=== PATIENT | female | born 1970 | race Caucasian/White ===

== ENCOUNTER 2019-02-12 16:29 | Outpatient (REF) | payer MEDICARE, SELFPAY ==
--- NOTE | 2019-02-12 16:15 | PAPFT_PTH ---
PATIENT: Marii Neri LOC: [facility] U#:[id number] AGE/SX: 48/F ROOM: RE02/12/[address]: WILLIAM Hinson : 1970 BED: DIS: 02/12/2019 SPEC #: [id number] RECD: 02/13/19 13:01 STATUS: MICHAEL TROY #: [id number] JENNIFER: 02/12/19 16:[address]: Tashia Simpson DEPT: [facility] Cytology RECD BY: Mabel Grant Tissues: 1 - CX/ENDOCX FOR PAP SMEARS Procedures: PAP THIN PREP/UVM Screening HPV DNA PROBE Comments: [id number]
== END 2019-02-12 16:49 ==
LOC: LBN 16:29
PROVIDERS: PCP Nurse Practitioner Family; Visit Provider Nurse Practitioner Family
DX: Z12.4 Encounter for screening for malignant neoplasm of cervix (principal); Z11.51 Encounter for screening for human papillomavirus (HPV)
CPT/HCPCS: 88142; 87624

== ENCOUNTER 2019-02-14 01:32 | Outpatient (CLI) | payer MEDICARE, SELFPAY ==
--- NOTE | 2019-02-14 13:30 | DI.MAMMO_ITS ---
SYMPTOMS/DIAGNOSIS: SCREENING, Z12.31 MAMMOGRAMS: Mammograms were interpreted according to the usual protocol including computer analysis with CAD system, tomosynthesis and C view imaging. The breasts are of moderate density with fairly symmetrical distribution of fibroglandular tissue. No dominant mass or clumped microcalcification is identified in either breast. Current examination is compared with the previous examination of May 2013 and there has been no gross interval change in appearance since that time. CONCLUSION: No specific evidence of malignancy at this time. Routine screening examinations are suggested at yearly intervals in this age group according to the ACS/ACR guidelines. Category 1, breast density category B. MQSA ASSESSMENT OF FINDINGS: Negative. Category 1. Patient will receive a letter notifying them of these results. BI-RADS category B. There are scattered areas of fibroglandular density.
== END 2019-02-14 01:52 ==
PROVIDERS: PCP Nurse Practitioner Family; Visit Provider Nurse Practitioner Family
DX: Z12.31 Encounter for screening mammogram for malignant neoplasm of breast (principal)
CPT/HCPCS: 77063; 77067

== ENCOUNTER 2019-02-19 07:05 | Outpatient (CLI) | payer MEDICARE, SELFPAY ==
[2019-02-19 08:27] LABS: Anion Gap 7.5 mmol/L (3-11); BUN 19 mg/dL (7-18); CO2 28.5 mmol/L (21.0-32.0); CREATININE 0.68 mg/dL (0.55-1.02); Calcium 8.9 mg/dL (8.5-10.1); Chloride 105 mmol/L (98-107); Cholesterol 161 mg/dL (50-200); Glucose 93 mg/dL (70-100); HDL Cholesterol 52 mg/dL (40-60); LDL CHOLESTEROL 87 mg/dL (<100); Potassium 3.6 mmol/L (3.5-5.1); Sodium 141 mmol/L (136-145); Triglyceride 98 mg/dL (30-150)
[2019-02-19 08:42] LABS: Hemoglobin A1C 5.3 % (4.5-6.2)
== END 2019-02-19 07:25 ==
PROVIDERS: PCP Nurse Practitioner Family; Visit Provider Nurse Practitioner Family
DX: Z13.1 Encounter for screening for diabetes mellitus (principal); Z13.6 Encounter for screening for cardiovascular disorders; R69 Illness, unspecified
CPT/HCPCS: 36415; 80048; 80061; 83721; 83036

== ENCOUNTER → 2019-03-12 07:57 | Outpatient (BNVA) | payer MEDICARE, SELFPAY | PROVIDERS: PCP Nurse Practitioner Family; Referring Provider Nurse Practitioner Family; Visit Provider Student in an Organized Health Care Education/Training Program | DX: M65.4 Radial styloid tenosynovitis [de Quervain] (principal); M19.041 Primary osteoarthritis, right hand; M25.531 Pain in right wrist; M25.541 Pain in joints of right hand | CPT/HCPCS: 20550; 99212; J1030 ==

== ENCOUNTER 2019-04-16 11:20 | Outpatient (CLI) | payer MEDICARE, SELFPAY ==
--- NOTE | 2019-04-16 08:18 | DI.RAD_ITS ---
SYMPTOM/DIAGNOSIS: RT THUMB PAIN RIGHT THUMB: Mild degenerative changes involving the interphalangeal and metacarpal phalangeal joints are demonstrated. There is also evidence of mild DJD at the first metacarpal multangular joint.
== END 2019-04-16 11:40 ==
PROVIDERS: PCP Nurse Practitioner Family; Referring Provider Nurse Practitioner Family; Visit Provider Student in an Organized Health Care Education/Training Program
DX: M65.4 Radial styloid tenosynovitis [de Quervain] (principal); M79.644 Pain in right finger(s); M18.11 Unilateral primary osteoarthritis of first carpometacarpal joint, right hand; Z98.890 Other specified postprocedural states
CPT/HCPCS: 99213; 73140

== ENCOUNTER 2019-06-05 08:57 | Outpatient (CLI) | payer MEDICARE, SELFPAY ==
--- NOTE | 2019-06-05 08:07 | HPE_ITS ---
Date of service: 06/05/19 Assessment and Plan (1) De Quervain's tenosynovitis, right: Current visit: No Status: Chronic (2) Osteoarthritis of carpometacarpal (CMC) joint of right thumb: Current visit: No Status: Chronic Trapezial arthroplasty and De Quervain's release of the right wrist. Details of surgery were discussed with patient as well as risks and pertinent anatomy. All questions were answered. Qualifiers: Osteoarthritis type: primary Qualified Code(s): M18.11 - Unilateral primary osteoarthritis of first carpometacarpal joint, right hand History of Present Illness Chief Complaint: Right thumb and wrist pain Narrative: Marii is a 49 year old female who comes in today for a preop history and physical for a trapezial arthroplasty and De Quervain's release on her right wrist. She has been dealing with right hand pain for quite some time, and even when wearing a brace, she has pain with rigorous or repetitive motions of the right hand. She has had an injection in the right wrist for De Quervain's tendinitis, and this only helped her symptoms slightly. She has proven CMC arthritis in the right thumb on x- ray, and physical exam in the office seems to point towards both CMC arthritis and De Quervain's tendinitis. After discussion in the office at her previous visit, she elects to move forward with a trapezial arthroplasty at the same time as a De Quervain's release on the right wrist in order to potentially relieve all of her symptoms in her right hand. Pertinent Surgical Information Patient denies history of hypertension, CVA, MT, angina, asthma, COPD, renal or liver disorders, hepatitis, bleeding disorders, diabetes, immune or thyroid disorders. No complications from anesthesia. Review of Systems Constitutional Denies fever(s) ENT Denies dizziness and Denies sore throat Cardiovascular Denies chest pain, Denies palpitations and Denies dyspnea Respiratory Denies cough and Denies dyspnea Gastrointestinal Denies abdominal pain, Denies melena, Denies hematochezia, Denies diarrhea, Denies nausea and Denies vomiting Genitourinary Denies hematuria and Denies dysuria Neurologic Denies dizziness Endocrine Denies palpitations [facility] Medical History Chronic midline low back pain with right-sided sciatica (Inactive 03/21/18) Electronic cigarette use (Inactive 02/11/18) Primary fibromyalgia syndrome (Chronic 10/06/13) Surgical History (Updated 06/05/19 @ 08:38 by SWATHI Ferrera) H/O section (Inactive) History of arthroscopy of left shoulder (Acute 08/29/16) History of bilateral tubal ligation (Inactive ~2000) History of cholecystectomy (Chronic 12/19/17) Social History (Updated 02/17/19 @ 10:21 by Alek Alvares) Smoking/Tobacco Use Status: Current every day Tobacco: How many years used: 35 Quit status: not considering quitting Alcohol Intake: current Alcohol Intake frequency: a few times a month Alcohol type: hard liquor Drug use: Never Substance use type: does not use Caregiver/Support person: No Household members: spouse Housing: house Communication Needs: None Do you need help understanding health information?: Rarely Pets and animals: Yes Pets and animals: dog(s) Sexually active: Yes Do you think of yourself as: straight/heterosexual Current gender identity: decline to answer What is your relationship status?: How often do you talk on the phone with friends or family?: never How often do you get together with friends or relatives?: decline to answer How often do you attend mormon or buddhist services?: decline to answer Do you belong to any clubs or organized social groups?: no Panel score (0-1 are the most socially isolated patients): 1 What type of physical activity do you participate in: walking Duration: 15-30 minutes/day Frequency: 1-2 times per week Mayda/Cheondoism: none Special mayda needs: No Seatbelt use: sometimes Helmet use: No Drive intox or ride w/intox subway train driver: No Do you feel safe in your relationship?: Yes History History 3 Para 3 Hx # Term Pregnancies Multiple births Hx # Pregnancies Ectopic pregnancies AB induced Hx Number of Living Children 2 AB spontaneous Meds Home Medications Medication Instructions Recorded Confirmed Type Sleep Aid (doxylamine) 25 mg PO DAILY tab-cap 09/11/17 06/05/19 History gabapentin 800 mg tablet 800 mg PO TID #270 tab-cap 09/18/18 06/05/19 Rx docusate sodium 100 mg capsule 100 mg PO DAILY PRN tab-cap 02/12/19 06/05/19 History ibuprofen 600 mg tablet 600 mg PO Q6H PRN #180 tab 05/01/19 06/05/19 Rx acetaminophen 650 mg 1,300 mg PO QID tab 06/05/19 06/05/19 History tablet,extended release Allergies Allergy/AdvReac Type Severity Reaction Status Date / Time No Known Allergies Allergy Unverified 06/05/19 08:02 Exam [facility] Head: normocephalic and atraumatic General nose exam: no nasal discharge Throat: uvula midline and no uvular edema Other: soft palate rises symmetrically, no erythema Eyes Conjunctivae: conjunctivae normal Sclera: sclerae normal Pupils: PERRL Resp Effort & Inspection: normal respiratory effort Auscultation: clear to auscultation bilaterally and no wheezes Cardio Rate: regular rate Rhythm: regular rhythm Heart Sounds: S1 normal, S2 normal and no murmurs GI Palpation: soft, no hepatosplenomegaly and nontender Auscultation: normal bowel sounds
== END 2019-06-05 09:17 ==
PROVIDERS: PCP Nurse Practitioner Family; Visit Provider Student in an Organized Health Care Education/Training Program
DX: M65.4 Radial styloid tenosynovitis [de Quervain] (principal); M18.11 Unilateral primary osteoarthritis of first carpometacarpal joint, right hand; Z01.818 Encounter for other preprocedural examination
CPT/HCPCS: NC

== ENCOUNTER 2019-06-10 09:27 | Day surgery (SDC) | payer MEDICARE, SELFPAY ==
[2019-06-10] VITALS (7 sets, daily range): BP systolic 130–172; BP diastolic 80–100; PULSE 17–70; RESP 12–16; TEMP 36.1–36.4; O2SAT 94–98
--- NOTE | 2019-06-10 09:43 | DI.RAD_ITS ---
SYMPTOM/DIAGNOSIS: DEQUERVAINS RIGHT WRIST: Fluoroscopy Time: 7 seconds Fluoroscopy was provided in the OR. Hard copy images show resection of the trapezium.
[2019-06-10] MEDS: Lactated Ringers 1,000 ML 80 ML IV (10:11)
[2019-06-10] MEDS: ceFAZolin 2 GM/50 ML BAG IVPB (10:16)
--- NOTE | 2019-06-10 10:16 | PDOC.DSDIS_ITS ---
Discharge Plan Disposition Patient Disposition: HOME Condition: Good Discharge Details Reason For Visit: R Dequervains and 1st CMC Arthritis Attending Provider: Kamron Abraham Primary Care Provider: Tashia Simpson Home Meds and New Rx's Prescriptions: New acetaminophen 500 mg tablet 1,000 mg PO Q8H PRN (Reason: pain) Qty: 60 RF: 3 oxycodone 5 mg tablet 5 mg PO Q6H PRN PRNQty: 16 RF: 0 Continued Sleep Aid (doxylamine) 25 MG tablet 25 mg PO HS RF: 0 gabapentin 800 mg tablet 800 mg PO TID Qty: 270 RF: 4 docusate sodium [Colace] 100 mg capsule 100 mg PO DAILY PRNRF: 0 ibuprofen 600 mg tablet 600 mg PO Q6H PRN Qty: 180 RF: 2 Discontinued acetaminophen [Tylenol Arthritis Pain] 650 mg tablet extended release 1,300 mg PO QID RF: 0 Discharge Instructions Additional Instructions: Activity: You should keep the hand/thumb elevated as much as possible for the first few days. You may use the other fingers as tolerated but avoid trying to do too much too soon. You may perform light activities with the splint in place. Dressing/Cast: Your splint should stay in place at all times. Do NOT get it wet. You may loosen the NESTOR wrap if you feel it is too tight and then rewrap more loosely. Medications: - You should take Tylenol and Ibuprofen for baseline pain control. - You have Oxycodone for breakthrough pain. - You may apply ice over the thumb. Follow-up: 10-14 days Referrals: Kamron Abraham MD [ [facility] STAFF PHYSICIAN] - Equipment/Supplies: Splint Activity:: Elevate Remove Dressings/Wound Care:: Do Not Remove Shower/Bathe:: Cover Diet:: As Tolerated Discharge Orders Discharge Orders: Discharge Order (Routine); Ordered 06/10/19 Ordered By: Kamron Abraham DS: Diagnosis Discharge Diagnosis (1) Osteoarthritis of carpometacarpal (CMC) joint of right thumb: Status: Chronic (2) De Quervain's tenosynovitis, right: Status: Chronic
[2019-06-10] MEDS: oxyCODONE 5 MG TAB PO (12:55)
--- NOTE | 2019-06-11 07:37 | ROE_ITS ---
Date of service: 06/10/19 Time of Service: 12:37 Operative Note DATE OF PROCEDURE: 06/10/19 PRE-OP DIAGNOSIS: Right dequervain's Tenosynovitis and right first CMC arthritis POST-OP DIAGNOSIS: same PROCEDURE: Right first extensor compartment release Right trapezial arthroplasty with suture suspensionplasty SURGEON: Kamron Abraham LAB ASSOCIATE: Hugo White ANESTHESIA: MAC ESTIMATED BLOOD LOSS: 50 PATHOLOGY: none sent TOURNIQUET TIME: 55 COMPLICATIONS: Other (A small arterial branch was injured. This was cauterized. It was not the palmar arch branch of the radial artery or the superficial branch of the radial artery. The hand was well-perfused.) Patient was transported to: same day Patient's condition: stable Indications: Marii is a 49-year-old [id number] female who has had symptoms of de Quervain's tenosynovitis and first CMC arthritis. Nonoperative treatment options had been trialed. Given their failure, I offered operative i ntervention. I reviewed the technical details of a first extensor compartment release along with CMC trapezial resection arthroplasty. I reviewed the risk of the procedure to include bleeding, infection, pain, stiffness, tendon instability, damage to the superficial radial nerve, damage to neighboring arteries, subsidence and incomplete release. Despite these risks, the patient elected to proceed. Findings: There was a tightened first excessive compartment. There is a single sub-compartment encasing the EPB tendon which was released. The trapezium was removed in a standard fashion. However, it was recognized that there is a small vascular structure which was injured. It was not the palmar branch of the radial artery nor the superficial branch of the radial artery. After assessing blood flow of the tourniquet down and this bleeding vessel clamped, there was excellent blood flow throughout the digits. It was then decided to cauterize successfully. There is no further bleeding. Procedure Description: Marii was greeted in the preoperative holding area. Name and surgical site were confirmed. The history and physical was completed. The consent was reviewed the patient and signed. Marii was taken back to the operating room. The patient was placed and monitored anesthesia care. The right was then prepped with ChloraPrep and draped in a standard fashion after a nonsterile tourniquet was placed high up onto the arm. Prophylactic antibiotics in the form of cefazolin were administered. A timeout was performed for safe surgery. The surgical site was drawn on the skin. The planned surgical field was anesthetized with 0.25% bupivacaine with epinephrine. The limb was exsan guinated and the tourniquet was inflated where it stayed for 55 minutes. A 3 cm incision was made longitudinally over the radial styloid and first CMC joint. The skin was incised only. The deep tissue and subcutaneous fat was dissected with a tenotomy scissors trying to protect superficial radial nerve. Any branches that were identified were retracted out of the way. The first compartment extensor tendons were then identified. The distal aspect of the first compartment was noted and were released. This release was performed more on the dorsal side to prevent tendon subluxation. The entirety of the first extensor compartment was then released. The slips of the abductor pollicis longus tendon were inspected. They removed to confirm the appropriate motion of the thumb. The extensor pollicis brevis tendon was then identified. It was housed in a separate sub-compartment. It was fully released. Traction on the tendon was also used to confirm appropriate extension of the thumb confirming the release of the appropriate tendon. The dorsal radial surface of the radius was once again inspected to make sure there is no other sub-compartments or other restrictions to tendon motion. Attention was then turned to the CMC arthroplasty portion of the case. The joint space between the trapezium of the first metacarpal was identified. The capsule was incised and a [employer] was placed within this joint. Fluoroscopy was used to confirm appropriate location. The capsule was then elevated off of the trapezium. This was worked from a distal to proximal direction. Retractors wer e placed. As I was moving from the proximal distal direction there is a noted blush of blood as I was dissecting tissue off of the trapezium. There was noted to be a small tubular structure. This was adjacent to the palmar branch of the radial artery but it did not involve the palmar branch of the radial artery. We continued with removing of the trapezium. This was done by elevating off the c apsular tissues. An osteotome was used to separate the bone into 4 pieces and then removed with a rongeur. Once all the major aspects of the trapezium was removed the wound was irrigated. I then performed a suture suspension plasty by placing a #2-0 FiberWire from the base of the first metacarpal through the insertion of the abductor pollicis longus tendon into the flexor carpi radialis tendon at the level of the second metacarpal. This was taken back and forth twice to create a crossing suture to serve as a sling. This suture was not over tightened to prevent hourglass deformity of the tendons. X-ray confirmed appropriate positioning and it was tied in place. I then released the tourniquet. It was evident that there was a small arterial branch. Once again, it was not the superficial radial artery branch and also was not the palmar branch. This was dissected out more fully. It was unclear exactly what secondary branch it was. Nevertheless, it was clamped and there is no change to blood flow or perfusion of the digits. Therefore, I cauterized the small branch. There is no more active blood flow. There was a small sidewall injury to the palmar branch of the radial artery. It involved the adventitia but do not think actually went completely through the artery as there was no pulsatile flow. However, there was a defect seen there in the adventitia and therefore I placed a single 6-0 nylon suture in the sidewall which stopped all oozing. The wound was thoroughly irrigated. There is no significant blood loss within the wound anymore. All digits were warm and well perfused with capillary refill less than 2 seconds. The wound was then thoroughly irrigated. The deep tissue was closed with a 3-0 Vicryl. The skin was closed with a running subjective 4-0 Monocryl. Skin glue was applied. The hand was dressed with 4 x 4's, web roll, thumb spica splint. At the end of the case, all counts were correct. Patient was transferred back to the PACU in stable condition.
== END 2019-06-10 13:43 | disposition home or self-care (01) ==
PROVIDERS: PCP Nurse Practitioner Family; Visit Provider Student in an Organized Health Care Education/Training Program
PROC: (CPT 25000; principal; 2019-06-10 10:15)
PROC: (CPT 25447; 2019-06-10 10:15)
DX: M18.11 Unilateral primary osteoarthritis of first carpometacarpal joint, right hand (principal); M65.4 Radial styloid tenosynovitis [de Quervain]; I97.52 Accidental puncture and laceration of a circulatory system organ or structure during other procedure
CPT/HCPCS: 25447; 25000; 81025; 73100; J0690; J1100; J1885; J2250; J2405; L3650

== ENCOUNTER → 2019-06-26 11:19 | Outpatient (BNVA) | payer MEDICARE, SELFPAY | PROVIDERS: PCP Nurse Practitioner Family; Referring Provider Nurse Practitioner Family; Visit Provider Student in an Organized Health Care Education/Training Program | DX: Z47.89 Encounter for other orthopedic aftercare (principal); M18.11 Unilateral primary osteoarthritis of first carpometacarpal joint, right hand; M65.4 Radial styloid tenosynovitis [de Quervain] | CPT/HCPCS: L3807 ==

== ENCOUNTER → 2019-08-04 09:24 | Outpatient (BNVA) | payer MEDICARE, SELFPAY | PROVIDERS: PCP Nurse Practitioner Family; Referring Provider Nurse Practitioner Family; Visit Provider Student in an Organized Health Care Education/Training Program | DX: Z47.89 Encounter for other orthopedic aftercare (principal); M18.11 Unilateral primary osteoarthritis of first carpometacarpal joint, right hand; M65.4 Radial styloid tenosynovitis [de Quervain] ==

== ENCOUNTER 2022-06-29 17:03 | Emergency (ER) | payer SELFPAY ==
[2022-06-29 17:08] VITALS: BP 131/78; PULSE 97; RESP 18; TEMP 36.5; O2SAT 97
--- NOTE | 2022-06-29 17:21 | W.ED.GENAD ---
Discharge Plan Disposition Patient Disposition: HOME Condition: Stable Discharge Details Clinical Impression: Acute mastitis of right breast Primary Care Provider: Tashia Simpson ED Provider: Kaitlynn Mike Home Meds and New Rx's Prescriptions: New cephalexin 500 mg tablet 500 mg PO BID 7 Days Qty: 14 0RF Rx Instructions: Take one tablet with food twice daily No Action gabapentin 800 mg tablet 800 mg PO TID Qty: 270 3RF acetaminophen 500 mg tablet 1,000 mg PO Q8H PRN (Reason: pain) Qty: 60 3RF ibuprofen 600 mg tablet 600 mg PO Q6H PRN Qty: 180 2RF Discharge Instructions Instructions: Mastitis (ED), Cellulitis (ED) Additional Instructions: Please have the ultrasound as soon as possible as instructed by the radiology department. Call them to make an appointment. Take the antibiotics as directed with yogurt or a probiotic. Please take Tylenol or Ibuprofen with food every 4-6 hours as needed for pain and swelling. Please follow-up closely with your primary care provider to discuss the results of the ultrasound and for further evaluation. Please discuss the need for possible needle biopsy and or mammogram. The redness and swelling should get better in the next 3 to 5 days with the antibiotics. Please return sooner if any spreading of the redness or no improvement. Referrals: Tashia Simpson, [employer] OPERATOR [Primary Care Provider] - 3 days Medical Decision Making 52-year-old female presents to the ER with chief complaint of right breast redness, swelling and tenderness which she reported noticing a few days ago. No nipple discharge. She does have a large area of erythema, induration warmth and red streaks. CBC, CMP, lactate ordered. Outpatient soft tissue ultrasound of right breast noted. CBC shows white blood cell count of 13.32, absolute neutrophils 1.43, sodium 135 potassium 3.3 glucose 133. Lactate 1.0. Patient was given a gram of Rocephin here in the department. Prescription given for cephalexin however milligrams twice daily. Instructed to have ultrasound of soft tissue of right breast soon as possible and follow-up with primary care to discuss further evaluation. Discussed strict return instructions. Verbalized understanding. This text was generated using [employer] system, please disregard any oddities of phrase or misspellings. Lab Data Lab results reviewed: Yes I reviewed the patient's lab results. Labs: Laboratory Tests Range/Units 06/29/22 06/29/22 06/29/22 17:40 17:40 17:40 WBC (4.4-10.8) 10^3/uL 13.32 H RBC (3.93-5.22) 10^6/uL 4.05 Hgb (11.2-15.7) g/dL 13.0 Hct (36.0-46.0) % 36.2 MCV (80-95) fL 89 MCH (27.0-33.0) pg 32.1 MCHC (32.0-36.0) % 35.9 RDW (11.7-14.6) % 11.9 Plt Count (130-400) 10^3/uL 153 MPV (8.0-11.0) fL 11.1 H Immature Gran % 0.5 Neutrophils % 85.8 Lymphocytes % 7.7 Monocytes % 5.8 Eosinophils % 0.0 Basophils % 0.2 Nucleated RBC % (0.0-0.3) % 0.0 Absolute Neutrophils (1.2-6.7) 10^3/uL 11.43 H Absolute Lymphocytes (1.2-3.4) 10^3/uL 1.03 L Absolute Monocytes (0.1-0.8) 10^3/uL 0.77 Absolute Eosinophils (0.0-0.7) 10^3/uL 0.00 Absolute Basophils (0.0-0.2) 10^3/uL 0.03 VBG Lactate (0.6-1.4) mmol/L 1.0 Sodium (136-145) mmol/L 135 L Potassium (3.5-5.1) mmol/L 3.3 L Chloride (98-107) mmol/L 99 Carbon Dioxide (21.0-32.0) mmol/L 27.9 Anion Gap (3-11) mmol/L 8.1 BUN (7-18) mg/dL 20 H Creatinine (0.55-1.02) mg/dL 0.8 Est GFR (CKD-EPI 2020) (mL/min/1.73m2) 87.50 Glucose (74-106) mg/dL 133 H Calcium (8.5-10.1) mg/dL 9.6 Total Bilirubin (0.2-1.0) mg/dL 0.8 AST (15-37) U/L 18 ALT (14-59) U/L 26 Alkaline Phosphatase (46-116) U/L 80 Total Protein (6.4-8.2) g/dL 8.4 H Albumin (3.4-5.0) g/dL 4.0 HPI General Mode of arrival: ambulatory. Date/Time Provider Initiated Documentation: 06/29/22 17:06. Limitations to Documentation: no limitations. Information obtained by: patient, RN notes reviewed and old records reviewed. HPI Narrative: 52-year-old female presents to the ER with chief complaint of right breast redness, swelling and tenderness which she reported noticing a few days ago. No nipple discharge. She does have a large area of erythema, induration warmth and red streaks. She does report body aches increased fatigue and chills. Undocumented fever. She is afebrile here upon arrival. She has a past medical history of osteoarthritis, fibromyalgia and tenosynovitis. Related Data Home Medications Medication Instructions Recorded Confirmed acetaminophen 500 mg tablet 1,000 mg PO Q8H PRN pain #60 tabs 06/10/19 06/29/22 ibuprofen 600 mg tablet 600 mg PO Q6H PRN #180 tabs 06/10/19 06/29/22 gabapentin 800 mg tablet 800 mg PO TID #270 tab-caps 01/23/22 06/29/22 cephalexin 500 mg tablet 500 mg PO BID 7 days #14 tabs 06/29/22 Previous Rx's Medication Instructions Recorded acetaminophen 500 mg tablet 1,000 mg PO Q8H PRN pain #60 tabs 06/10/19 ibuprofen 600 mg tablet 600 mg PO Q6H PRN #180 tabs 06/10/19 gabapentin 800 mg tablet 800 mg PO TID #270 tab-caps 01/23/22 cephalexin 500 mg tablet 500 mg PO BID 7 days #14 tabs 06/29/22 Allergies Allergy/AdvReac Type Severity Reaction Status Date / Time No Known Allergies Allergy Verified 06/29/22 17:11 General Stated Complaint: Cellulitis JASMYN: 3 Review of Systems All systems reviewed & are unremarkable except as noted in HPI and below Integumentary/Breasts Skin/Breast: Reports as per HPI, Reports breast swelling, Reports breast skin changes, Reports breast pain, Reports breast mass and Reports erythema PFSH All Active Problems (Updated 06/29/22 @ 18:41 by Kaitlynn Mike NP) Acute mastitis of right breast (Acute) Osteoarthritis of carpometacarpal (CMC) joint of right thumb (Chronic) De Quervain's tenosynovitis, right (Chronic) Injection: 03/12/19 Primary fibromyalgia syndrome (Chronic) Surgical History H/O section x 2 H/O hand surgery (06/10/19) Right first extensor compartment release. Right trapezial arthroplasty with suture suspensionplasty History of arthroscopy of left shoulder (08/29/16) #1. Mini open distal clavicle excision. #2. Left shoulder arthroscopy with debridement of complex superior labral [id number] tear. #3. Arthroscopic subacromial decompression with acromioplasty. #4. Open subpectoral biceps tenodesis. History of bilateral tubal ligation (~2000) History of cholecystectomy (12/19/17) Family History Mother No problems noted. Father No problems noted. Sister No problems noted. Sister No problems noted. Sister Fibromyalgia Sister No problems noted. Sister No problems noted. Brother No problems noted. Brother No problems noted. Son No problems noted. Son No problems noted. Daughter , shortly after No problems noted. Maternal Grandfather No problems noted. Maternal Grandmother No problems noted. Paternal Grandfather No problems noted. Paternal Grandmother No problems noted. Social History Smoking/Tobacco Use Status: Current every day Tobacco Type: e-cigarettes Tobacco: How many years used: 35 Quit status: not considering quitting Second Hand Exposure: Yes Smoking risk assessment performed?: Yes Alcohol Intake: current Alcohol Intake frequency: a few times a month Alcohol type: hard liquor Drug use: Never Substance use type: does not use and prescription drug Caregiver/Support person: No Household members: spouse Housing: house Communication Needs: None Do you need help understanding health information?: Often Pets and animals: No Sexually active: Yes Do you think of yourself as: straight/heterosexual Current gender identity: male What is your relationship status?: How often do you talk on the phone with friends or family?: decline to answer How often do you get together with friends or relatives?: decline to answer How often do you attend yarsani or mosque services?: decline to answer Do you belong to any clubs or organized social groups?: no Panel score (0-1 are the most socially isolated patients): 1 What type of physical activity do you participate in: none Mayda/Lutheran: none Special mayda needs: No Seatbelt use: always Helmet use: No Drive intox or ride w/intox class b truck driver: No Do you feel safe at home: Yes Do you feel safe in your relationship?: Yes History History 3 Para 3 Hx # Term Pregnancies Multiple births Hx # Pregnancies Ectopic pregnancies AB induced Hx Number of Living Children 2 AB spontaneous Exam Chest Breast inspection: abnormal inspection of the breast right lower inner edema and erythema; no nipple discharge Breast palpation: abnormal palpation of the breast right Chest/axillae images: 1. Erythema, induration, tenderness and warmth no area of fluctuance 2. Red streaks 3. Red streaks Course Vital Signs Vital signs: Vital Signs Temperature 36.5 C 06/29/22 17:08 Pulse 97 H 06/29/22 17:08 Respiratory Rate 18 06/29/22 17:08 Blood Pressure 131/78 06/29/22 17:08 Pulse Oximetry 97 06/29/22 17:08 Temperature 36.5 C 06/29/22 17:08 Temperature Source Oral 06/29/22 17:08 Pulse 97 H 06/29/22 17:08 Respiratory Rate 18 06/29/22 17:08 Respiratory Effort Non-Labored 06/29/22 17:12 Blood Pressure 131/78 06/29/22 17:08 Blood Pressure Position Sitting 06/29/22 17:08 Pulse Oximetry 97 06/29/22 17:08 Oxygen Delivery Method Room Air 06/29/22 17:08 Oxygen Flow Rate 0 06/29/22 17:08 Pain Level 8 06/29/22 17:08 PAWSS Have you Been Recently Intoxicated or Drunk Within the Last 30 days?: No Have you Ever Experienced Previous Episodes of Alcohol Withdrawal?: No Have you ever Experienced Withdrawal Seizures?: No Have you ever Experienced Delirium Tremens(DT)s?: No Have you ever undergone Alcohol Rehabilitation Treatment (i.e, inpt ot outpatient treatment programs)?: No Have you ever Experienced Blackouts?: No Have you ever Combined Alcohol with other Downers within the last 90 days?: No Have you ever Combined Alcohol with any other Substance of Abuse during the last 90 days?: No Positive Blood Alcohol level on Presentation? [PCS.BAL]: No Evidence of Increased Autonomic Activity (i.e. HR>120, tremor, sweating, agitation, nausea)?: No Result: 0
[2022-06-29] MEDS: cefTRIAXone 1 GM/50 ML BAG IVPB (17:57)
[2022-06-29 18:00] LABS: Abs Immature Grans 0.07 10^3/uL (0.0-0.06); Absolute Lymphocyte Count 1.03 10^3/uL (1.2-3.4); Absolute Monocyte Count 0.77 10^3/uL (0.1-0.8); Absolute Neutrophil Count 11.43 10^3/uL (1.2-6.7); Basophils % 0.2; HCT 36.2 % (36.0-46.0); Immature Grans % 0.5; Lymphocytes % 7.7; MCH 32.1 pg (27.0-33.0); MCHC 35.9 % (32.0-36.0); MCV 89 fL (80-95); MPV 11.1 fL (8.0-11.0); Monocytes % 5.8; Neutrophils % 85.8; Platelet Count 153 10^3/uL (130-400); RBC 4.05 10^6/uL (3.93-5.22); RDW 11.9 % (11.7-14.6); RDW-SD 38.4 fL; WBC 13.32 10^3/uL (4.4-10.8)
[2022-06-29 18:05] LABS: Absolute Basophil Count 0.03 10^3/uL (0.0-0.2)
--- NOTE | 2022-06-29 18:19 | NUR.NOTE ---
Addendum entered by Aniya Mullen 06/29/22 18:20: TO be done SundayJun 30 and to follow up with PCP Gonzalo Simpson. Original Note: Nursing Note: Request for soft tissue breast right US for R/O abscess-redness, swelling, right tenderness to DI.
[2022-06-29 19:04] LABS: ALT 26 U/L (14-59); AST 18 U/L (15-37); Alkaline Phosphatase 80 U/L (46-116); Anion Gap 8.1 mmol/L (3-11); BUN 20 mg/dL (7-18); Bilirubin, Total 0.8 mg/dL (0.2-1.0); CO2 27.9 mmol/L (21.0-32.0); CREATININE 0.8 mg/dL (0.55-1.02); Calcium 9.6 mg/dL (8.5-10.1); Chloride 99 mmol/L (98-107); Glucose 133 mg/dL (74-106); Potassium 3.3 mmol/L (3.5-5.1); Sodium 135 mmol/L (136-145); Total Protein 8.4 g/dL (6.4-8.2)
[2022-06-29] MEDS: Cephalexin 500 MG CAP, 2 CAPS/BTL PO (19:44)
[2022-06-29 19:59] VITALS: BP 111/69; PULSE 84; RESP 16; O2SAT 97
--- NOTE | 2022-07-02 12:47 | NUR.NOTE ---
Nursing Note: I spoke to hospital housekeeper JAVIER after recieving a request from [facility] who has this mutual patient in the ER at their facility. They have requested a copy of notes and the radiology report. AVAB
== END 2022-06-29 19:30 | disposition home or self-care (01) ==
PROVIDERS: Emergency Provider Registered Nurse Emergency; PCP Nurse Practitioner Family
DX: N61.0 Mastitis without abscess (principal); F17.290 Nicotine dependence, other tobacco product, uncomplicated
CPT/HCPCS: 80053; 96365; 99284; 83605; 85025; 99283; J0696

== ENCOUNTER → 2022-06-30 10:13 | Outpatient (CLI) | payer SELFPAY ==
--- NOTE | 2022-06-30 | DI.US_ITS ---
Exam(s) US BREAST RT COMPLETE EXAM: US BREAST RT LIMITED CLINICAL HISTORY: REDNESS, SWELLING, TENDERNESS, RT BREAST; ? ABSCESS. TECHNIQUE: Limited ultrasound of the right breast was performed. COMPARISON: Prior mammogram February 2019 was apparently negative. FINDINGS: The entire breast was scanned as was the axilla. This 52-year-old patient was treated with intravenous antibiotics in the emergency room last night pr ior to being discharged on oral antibiotics. This study was ordered by the ER physician and patient will be followed by her primary care physician. Scanning of the area of erythema in the breast between 3 o'clock and 6 o'clock reveals significant sk in thickening and edematous indurated breast tissue throughout this entire region. However, there is no truly discernible focal abscess at this time. There are no other focal findings in the remainder of the breast and benign-appearing small lymph nodes are noted in the right axilla. IMPRESSION: Findings are consistent with inflammatory-infectious process as described above. However, there is n o truly discernible abscess evident at this time. Recommend repeat scanning following oral antibiotic treatment, earlier if clinically indicated. Findings recommendations discussed by myself with the patient today. BI-RADS Category 3-[id number] follow-up.-Probably Benign Finding: Recommend follow-up ultrasound as a doc. Also follow-up mammogram when clinically possible Breast Density - Category B - Scattered areas of fibroglandular density Breast density Category C or D implies that the patient has dense breast tissue. Dense breast tissue can make it harder to find cancer on a mammogram. Dense breast tissue is also associated with an incr eased risk of breast cancer. This information about the result of the mammogram report was provided to the patient to raise their awareness. Use this report when you speak with the patient about their risks for breast cancer, which includes their family history. At that time, you may recommend additional screening tests (Ultrasoun d or MRI) as these tests may add significant information. A negative radiographic report should not delay biopsy if a dominant or clinically suspicious mass is present. Up to ten percent of cancers are not identified on mammography. A negative report may reinforce clinical impression. Adenosis and dense breasts may obscure an underlying neoplasm. False positive reports average 6 to 10%. Patient will receive a letter notifying them of these results.
== END ==
PROVIDERS: PCP Nurse Practitioner Family; Visit Provider Registered Nurse Emergency
DX: R91.8 Other nonspecific abnormal finding of lung field (principal); N63.10 Unspecified lump in the right breast, unspecified quadrant; N64.89 Other specified disorders of breast
CPT/HCPCS: 76642

== ENCOUNTER 2024-01-23 14:44 | Outpatient (REF) | payer MEDICARE, SELFPAY ==
--- NOTE | 2024-01-23 14:15 | PAPFT_PTH ---
PATIENT: Marii Neri LOC: [facility] U#:[id number] AGE/SX: 53/F ROOM: RE01/23/[address]: WILLIAM Hinson : 1970 BED: DIS: 01/23/2024 SPEC #: [id number] RECD: 01/24/24 12:45 STATUS: MICHAEL REKaylyn #: [id number] JENNIFER: 01/23/24 14:[address]: Tashia Simpson DEPT: [facility] Cytology RECD BY: Mabel Grant Tissues: 1 - CX/ENDOCX FOR PAP SMEARS Procedures: PAP THIN PREP/UVM Screening HPV DNA PROBE Comments: [id number]
== END 2024-01-23 14:45 | disposition home or self-care (01) ==
LOC: LBN 14:44
PROVIDERS: PCP Nurse Practitioner Family; Visit Provider Nurse Practitioner Family
DX: Z11.51 Encounter for screening for human papillomavirus (HPV) (principal); Z01.419 Encounter for gynecological examination (general) (routine) without abnormal findings
CPT/HCPCS: 88142; 87624

== ENCOUNTER 2024-07-23 12:32 | Outpatient (REF) | payer SELFPAY | END 2024-07-23 12:33 | disposition home or self-care (01) | LOC: LBN 12:32 | PROVIDERS: PCP Nurse Practitioner Family; Visit Provider Physician Assistant | DX: L98.9 Disorder of the skin and subcutaneous tissue, unspecified (principal); B95.62 Methicillin resistant Staphylococcus aureus infection as the cause of diseases classified elsewhere | CPT/HCPCS: 87077; 87070; 87186; 87205 ==